=== PATIENT | male | born 1950 | race Caucasian/White ===

== ENCOUNTER 2022-07-11 23:21 | Emergency (ER) | payer OTHER, MEDICARE ==
[~2022-07-11] VITALS: Ht 175.3 cm; Wt 75.0 kg
[~2022-07-11 23:21] MED LIST: LISINOPRIL20 MG PO; MULTI VITAMIN1 EACH PO; OMEPRAZOLE20 MG PO; PROPRANOLOL HCL60 M1 PO; VITAMIN B122500 MCG PO; VITAMIN D310 MC4 PO
[2022-07-12 00:45] VITALS: BP 121/78
== END 2022-07-12 00:51 | disposition home or self-care (01) ==
LOC: ED 23:21
DX: F10.129 Alcohol abuse with intoxication, unspecified (principal); Z88.2 Allergy status to sulfonamides; Z79.899 Other long term (current) drug therapy
CPT/HCPCS: 36415; 80053; 81003; 85025; 99284; G0480